=== PATIENT | male | born 1940 | race Caucasian/White ===

== ENCOUNTER 2022-09-02 09:57 | Day surgery (SDC) | payer MEDICARE, BC ==
[2022-08-29 12:09] VITALS: BMI 26.6
[2022-09-02] MEDS ORDERED: Lidocaine 2% MPF 10 ML AMP (For Epidural Use) ONE (11:36)
[2022-09-02] MEDS ORDERED: PROPOFOL 20 ML ONE (11:36)
[2022-09-02] MEDS ORDERED: Ondansetron PF 4 MG/2 ML Vial ONE (11:38)
== END 2022-09-02 13:14 | disposition home or self-care (01) ==
LOC: CSHSDC 09:57
PROVIDERS: ATTEND Internal Medicine Gastroenterology
PROC: 0DJD8ZZ Inspection of Lower Intestinal Tract, Via Natural or Artificial Opening Endoscopic (ICD-10-PCS; principal; 2022-09-02)
DX: Z12.11 Encounter for screening for malignant neoplasm of colon (principal); K92.1 Melena; F32.A Depression, unspecified; F41.9 Anxiety disorder, unspecified; E78.5 Hyperlipidemia, unspecified; K21.9 Gastro-esophageal reflux disease without esophagitis; Z90.49 Acquired absence of other specified parts of digestive tract; Z88.2 Allergy status to sulfonamides; Z88.0 Allergy status to penicillin; Z86.010 Personal history of colon polyps; Z80.0 Family history of malignant neoplasm of digestive organs; Z88.1 Allergy status to other antibiotic agents; Z79.899 Other long term (current) drug therapy
CPT/HCPCS: J2405; J2704